=== PATIENT | male | born 1950 | race Caucasian/White ===

== ENCOUNTER 2016-10-21 17:58 | Inpatient (IN) | payer OTHER, BC ==
[~2016-10-21] VITALS: Ht 172.7 cm; Wt 99.3 kg
[~2016-10-21 17:58] MED LIST: ALPRAZOLAM2 MG PO; BYSTOLIC10 MG PO; CARBIDOPA/LEVO1 EACH PO; CIPRO500 MG PO; HYDROCODON-ACE1 EAC7 PO; NEXIUM40 MG PO; PERCOCET 5/31 TABLET PO; PRIMIDONE50 MG PO; VENLAFAXINE HC150 M1 PO
[2016-10-21 19:13] LABS: MCH 32.5 PG (29.0-34.0); MCHC 33.8 G/DL (30.0-36.0); MCV 96.2 FL (86-99); MEAN PLAT.VOLUME 10.4 uM^3 (9.0-12.4); PLATELET COUNT 135 K/uL (156-360); RBC DIS.WIDTH-CV 13.8 % (11.8-14.6); RBC DIS.WIDTH-SD 47.4 % (39-53); RED BLOOD COUNT 4.99 M/uL (4.00-5.50); WHITE BLOOD COUNT 8.4 K/uL (4.1-10.2)
[2016-10-21 19:22] LABS: CHLORIDE 100 mEq/L (99-109); POTASSIUM 5.4 mEq/L (3.7-5.4); SODIUM 137 mEq/L (136-147)
[2016-10-21 19:23] LABS: GLUCOSE 104 mg/dL (70-99)
[2016-10-21 19:25] LABS: ANION GAP 13 MEQ/L (2-14)
[2016-10-21 19:27] LABS: GFR ESTIMATE (CALCULATED) > 59 mL/min/
[2016-10-21 19:28] LABS: UREA NITROGEN (BUN) 11 mg/dL (9-23)
[2016-10-21 21:18] LABS: INFLUENZA A VIRAL ANTIGEN POSITIVE; INFLUENZA B VIRAL ANTIGEN NEGATIVE
[2016-10-21] MEDS ORDERED: OMEPRAZOLE20 MG PO (22:22)
[2016-10-21] MEDS ORDERED: METOPROLOL SUC100 MG PO (22:23)
[2016-10-21] MEDS ORDERED: ADVIL200 MG PO (22:23)
[2016-10-22 00:36] VITALS: BP 182/80
[2016-10-22 03:55] VITALS: BP 186/86
[2016-10-22 07:30] VITALS: BP 142/62
[2016-10-22 16:00] VITALS: BP 140/60
[2016-10-22 23:31] VITALS: BP 143/77
[2016-10-23 04:52] LABS: EOSINOPHIL (%) 0 % (0-5); HEMATOCRIT 41.2 % (38.0-50.0); IMMATURE GRANULOCYTE (%) 0.2 % (0.0-0.7); IMMATURE GRANULOCYTE COUNT 0.1 K/uL; LYMPHOCYTE COUNT 0.9 K/uL (1.0-2.8); MCH 32.8 PG (29.0-34.0); MCV 96.5 FL (86-99); MEAN PLAT.VOLUME 10.4 uM^3 (9.0-12.4); MONOCYTE (%) 11.8 % (3-12); MONOCYTE COUNT 0.6 K/uL (0-0.8); NEUTROPHIL (%) 69.3 % (45-76); NEUTROPHIL COUNT 3.2 K/uL (1.8-6.4); PLATELET COUNT 103 K/uL (156-360); RBC DIS.WIDTH-CV 14.1 % (11.8-14.6); RBC DIS.WIDTH-SD 47.7 % (39-53); RED BLOOD COUNT 4.27 M/uL (4.00-5.50); WHITE BLOOD COUNT 4.7 K/uL (4.1-10.2)
[2016-10-23 04:55] LABS: CHLORIDE 104 mEq/L (99-109); SODIUM 139 mEq/L (136-147)
[2016-10-23 04:57] LABS: GLUCOSE 114 mg/dL (70-99)
[2016-10-23 04:59] LABS: ANION GAP 9 MEQ/L (2-14)
[2016-10-23 05:01] LABS: GFR ESTIMATE (CALCULATED) > 59 mL/min/
[2016-10-23 05:02] LABS: UREA NITROGEN (BUN) 11 mg/dL (9-23)
[2016-10-23 05:04] LABS: POTASSIUM 3.5 mEq/L (3.7-5.4)
[2016-10-23] MEDS ORDERED: OSELTAMIVIR PHO75 MG PO (07:35)
[2016-10-23] MEDS ORDERED: ADVAIR HFA120 INHALA IH (07:35)
[2016-10-23] MEDS ORDERED: VENTOLIN HFA18 GM IH (07:35)
[2016-10-23] MEDS ORDERED: PREDNISONE20 MG PO (07:35)
[2016-10-23 08:30] VITALS: BP 138/62
== END 2016-10-23 10:17 | disposition home or self-care (01) | DRG 195 ==
LOC: EME 17:58 → 3EAST 22:21 → EDOF 22:21 → 3EAST 23:20
PROVIDERS: Emergency Medicine; Internal Medicine
DX: J09.X2 Influenza due to identified novel influenza A virus with other respiratory manifestations (principal); D69.6 Thrombocytopenia, unspecified; J44.9 Chronic obstructive pulmonary disease, unspecified; G20 Parkinson's disease; R09.02 Hypoxemia; I10 Essential (primary) hypertension; F17.210 Nicotine dependence, cigarettes, uncomplicated; F10.10 Alcohol abuse, uncomplicated
CPT/HCPCS: 71020; 80048; 83735; 85025; 85027; 87502; 94640; 94640 76; 94799; 99202; 99281; 99285; J1650; J2060; J7030; J7512

== ENCOUNTER 2017-02-02 12:11 | Emergency (ER) | payer OTHER, BC ==
[~2017-02-02] VITALS: Ht 172.7 cm; Wt 112.7 kg
[~2017-02-02 12:11] MED LIST changes: +ADVAIR HFA120 INHALA IH; +ADVIL200 MG PO; +METOPROLOL SUC100 MG PO; +OMEPRAZOLE20 MG PO; +OSELTAMIVIR PHO75 MG PO; +PREDNISONE20 MG PO; +VENTOLIN HFA18 GM IH
[2017-02-02 16:20] VITALS: BP 138/93
== END 2017-02-02 16:21 | disposition home or self-care (01) ==
LOC: EME 12:11
PROC: 0HQ1XZZ Repair Face Skin, External Approach (ICD-10-PCS; principal; 2017-02-02)
DX: S01.81XA Laceration without foreign body of other part of head, initial encounter (principal); W19.XXXA Unspecified fall, initial encounter; Z91.81 History of falling; F10.10 Alcohol abuse, uncomplicated; G20 Parkinson's disease; J44.9 Chronic obstructive pulmonary disease, unspecified; I10 Essential (primary) hypertension; F17.200 Nicotine dependence, unspecified, uncomplicated
CPT/HCPCS: 99281; 99284

== ENCOUNTER 2017-08-14 11:33 | Inpatient (IN) | payer OTHER, BC ==
[~2017-08-14] VITALS: Ht 172.7 cm; Wt 116.8 kg
[~2017-08-14 11:33] MED LIST changes: -ALPRAZOLAM2 MG PO; +XANAX1 MG PO
[2017-08-14 12:41] LABS: MCH 25.1 PG (29.0-34.0); MCHC 31.8 G/DL (30.0-36.0); MCV 79.1 FL (86-99); MEAN PLAT.VOLUME 9.3 uM^3 (9.0-12.4); PLATELET COUNT 222 K/uL (156-360); RED BLOOD COUNT 5.06 M/uL (4.00-5.50); WHITE BLOOD COUNT 5.8 K/uL (4.1-10.2)
[2017-08-14 13:07] LABS: ANION GAP 12 MEQ/L (2-14); CHLORIDE 92 MEQ/L (99-109); POTASSIUM 5.9 MEQ/L (3.7-5.4); SAMPLE HEMOLYSIS CHECK 0; SAMPLE ICTERIC CHECK 0; SAMPLE LIPEMIA CHECK 0; SODIUM 128 MEQ/L (136-147)
[2017-08-14 13:13] LABS: GFR ESTIMATE (CALCULATED) 29 mL/min/ (58.99-99999); GLUCOSE 97 mg/dL (70-99); UREA NITROGEN (BUN) 46 mg/dL (9-23)
[2017-08-14 13:47] LABS: ADD MIUA? YES; BILIRUBIN NEGATIVE; BLOOD SMALL; COLOR YELLOW ((YELLOW)); GLUCOSE (STRIP) 50; KETONES 5; LEUKOCYTES MODERATE; NITRITE NEGATIVE; PROTEIN (STRIP) 100; SPECIFIC GRAVITY 1.012 (1.000-1.030); UROBILINOGEN 0.2 MG/DL (0.2-1.0)
[2017-08-14 13:50] LABS: DIRECT BILIRUBIN 0.1 mg/dL (0.0-0.3); TOTAL BILIRUBIN 0.6 MG/DL (0.0-1.0)
[2017-08-14 13:55] LABS: ALKALINE PHOSPHATASE 91 IU/L (3-129)
[2017-08-14 14:01] LABS: BACTERIA RARE /HPF; EPITHELIAL CELLS RARE /HPF; MUCUS 1+ /LPF; UCUL ADDED? YES
[2017-08-14] MEDS ORDERED: ALPRAZOLAM1 MG PO (14:11)
[2017-08-14] MEDS ORDERED: TAMSULOSIN HCL0.4 MG PO (14:12)
[2017-08-14] MEDS ORDERED: TRIAMTERENE-HC1 EAC1 PO (14:13)
[2017-08-14] MEDS ORDERED: AMLODIPINE BESYL5 MG PO (14:13)
[2017-08-14 15:33] LABS: SERUM ETHYL ALCOHOL < 10 mg/dL
[2017-08-14 16:13] LABS: MAGNESIUM 2.5 mg/dl (1.3-2.7)
[2017-08-14] MEDS ORDERED: BUSPAR7.5 MG PO (18:17)
[2017-08-14] MEDS ORDERED: LISINOPRIL20 MG PO (18:17)
[2017-08-14 18:25] VITALS: BP 175/79
[2017-08-14 22:03] VITALS: BP 153/69
[2017-08-15 00:31] VITALS: BP 129/60
[2017-08-15 02:48] LABS: C DIFF TOXIN POSITIVE (NEGATIVE)
[2017-08-15 03:01] LABS: PROBE CHECK PASS
[2017-08-15 04:01] VITALS: BP 144/68
[2017-08-15 06:41] LABS: ANION GAP 12 MEQ/L (2-14); CHLORIDE 96 MEQ/L (99-109); GFR ESTIMATE (CALCULATED) 46 mL/min/ (58.99-99999); GLUCOSE 102 mg/dL (70-99); POTASSIUM 4.9 MEQ/L (3.7-5.4); SAMPLE HEMOLYSIS CHECK 0; SAMPLE ICTERIC CHECK 0; SAMPLE LIPEMIA CHECK 0; SODIUM 133 MEQ/L (136-147); UREA NITROGEN (BUN) 36 mg/dL (9-23)
[2017-08-15 08:51] VITALS: BP 169/73
[2017-08-15 12:04] VITALS: BP 145/68
[2017-08-15 16:48] VITALS: BP 155/70
[2017-08-16 00:05] VITALS: BP 135/63
[2017-08-16 07:38] VITALS: BP 147/67
[2017-08-16 08:20] LABS: HEMATOCRIT 36.1 % (38.0-50.0); MCH 24.4 PG (29.0-34.0); MCHC 30.7 G/DL (30.0-36.0); MCV 79.5 FL (86-99); MEAN PLAT.VOLUME 9.4 uM^3 (9.0-12.4); PLATELET COUNT 183 K/uL (156-360); RBC DIS.WIDTH-CV 18.5 % (11.8-14.6); RED BLOOD COUNT 4.54 M/uL (4.00-5.50); WHITE BLOOD COUNT 5.5 K/uL (4.1-10.2)
[2017-08-16 08:51] LABS: ANION GAP 12 MEQ/L (2-14); CHLORIDE 101 MEQ/L (99-109); GFR ESTIMATE (CALCULATED) > 59 mL/min/ (58.99-99999); GLUCOSE 105 mg/dL (70-99); POTASSIUM 4.2 MEQ/L (3.7-5.4); SAMPLE HEMOLYSIS CHECK 0; SAMPLE ICTERIC CHECK 0; SAMPLE LIPEMIA CHECK 0; SODIUM 135 MEQ/L (136-147); UREA NITROGEN (BUN) 20 mg/dL (9-23)
[2017-08-16] MEDS ORDERED: FOLIC ACID1 MG PO (08:59)
[2017-08-16] MEDS ORDERED: CHLORDIAZEPOXID25 MG PO (08:59)
[2017-08-16] MEDS ORDERED: THERAGRAN1 TABLET PO (08:59)
[2017-08-16] MEDS ORDERED: NICOTINE PATCH1 EAC2 TD (08:59)
[2017-08-16] MEDS ORDERED: THIAMINE HCL100 MG PO (08:59)
[2017-08-16] MEDS ORDERED: APRESOLINE25 MG PO (08:59)
[2017-08-16] MEDS ORDERED: METRONIDAZOLE500 MG PO (08:59)
== END 2017-08-16 11:31 | disposition home or self-care (01) | DRG 683 ==
LOC: EME 11:33 → EDOF 14:52 → ENRESERV 14:56 → 5EAST 18:14
PROVIDERS: Hospitalist; Internal Medicine
DX: N17.9 Acute kidney failure, unspecified (principal); N39.0 Urinary tract infection, site not specified; A04.72 Enterocolitis due to Clostridium difficile, not specified as recurrent; T50.2X5A Adverse effect of carbonic-anhydrase inhibitors, benzothiadiazides and other diuretics, initial encounter; T46.4X5A Adverse effect of angiotensin-converting-enzyme inhibitors, initial encounter; E87.1 Hypo-osmolality and hyponatremia; E87.5 Hyperkalemia; G20 Parkinson's disease; I10 Essential (primary) hypertension; F41.9 Anxiety disorder, unspecified; K21.9 Gastro-esophageal reflux disease without esophagitis; F10.20 Alcohol dependence, uncomplicated; F17.200 Nicotine dependence, unspecified, uncomplicated; E66.9 Obesity, unspecified; Z68.39 Body mass index [BMI] 39.0-39.9, adult
CPT/HCPCS: 76770; 80048; 80076; 81003; 83605; 83735; 85027; 87040; 87086; 87493; 93005; 99281; 99285; G0480; J0696; J1644; J7030; S0030

== ENCOUNTER 2017-11-04 12:40 | Inpatient (IN) | payer OTHER, BC ==
[~2017-11-04] VITALS: Ht 172.7 cm; Wt 118.4 kg
[~2017-11-04 12:40] MED LIST changes: +ALPRAZOLAM1 MG PO; +AMLODIPINE BESYL5 MG PO; +APRESOLINE25 MG PO; +BUSPAR7.5 MG PO; +CHLORDIAZEPOXID25 MG PO; +FOLIC ACID1 MG PO; +LISINOPRIL20 MG PO; +METRONIDAZOLE500 MG PO; +NICOTINE PATCH1 EAC2 TD; +TAMSULOSIN HCL0.4 MG PO; +THERAGRAN1 TABLET PO; +THIAMINE HCL100 MG PO; +TRIAMTERENE-HC1 EAC1 PO
[2017-11-04 13:32] LABS: HEMATOCRIT 39.7 % (38.0-50.0); HEMOGLOBIN 12.2 G/DL (12.5-16.6); MCH 25.5 PG (29.0-34.0); MCHC 30.7 G/DL (30.0-36.0); MCV 82.9 FL (86-99); NRBC (%) 0.3 /100 WBC (0-0); PLATELET COUNT 233 K/uL (156-360); RBC DIS.WIDTH-CV 16.9 % (11.8-14.6); RBC DIS.WIDTH-SD 50.6 % (39-53); RED BLOOD COUNT 4.79 M/uL (4.00-5.50); WHITE BLOOD COUNT 7.3 K/uL (4.1-10.2)
[2017-11-04 13:42] LABS: CHLORIDE 103 mEq/L (99-109); POTASSIUM 4.2 mEq/L (3.7-5.4); SODIUM 138 mEq/L (136-147)
[2017-11-04 13:43] LABS: GLUCOSE 121 mg/dL (70-99)
[2017-11-04 13:47] LABS: CREATININE 0.9 mg/dL (0.6-1.3); GFR ESTIMATE (CALCULATED) > 59 mL/min/ (58.99-99999)
[2017-11-04 13:48] LABS: UREA NITROGEN (BUN) 12 mg/dL (9-23)
[2017-11-04 13:51] LABS: TROP-I INTERPRETATION NEGATIVE; TROPONIN-I < 0.01 ng/mL (0.0-0.30)
[2017-11-04] MEDS ORDERED: ONE DAILY1 EAC3 PO (17:29)
[2017-11-04] MEDS ORDERED: VITAMIN B-1100 MG PO (17:29)
[2017-11-04] MEDS ORDERED: PROBIOTIC1 EAC1 PO (17:30)
[2017-11-04] MEDS ORDERED: KENALOG,ARISTOC15 G2 TP (17:31)
[2017-11-04] MEDS ORDERED: PROAIR HFA8.5 GM IH (17:31)
[2017-11-04 17:57] LABS: MAGNESIUM 2.3 mg/dL (1.3-2.7)
[2017-11-04 19:44] VITALS: BP 172/74
[2017-11-04 20:25] LABS: TROP-I INTERPRETATION NEGATIVE; TROPONIN-I < 0.01 ng/mL (0.0-0.30)
[2017-11-04 23:47] VITALS: BP 165/74
[2017-11-05 02:19] LABS: CHLORIDE 104 mEq/L (99-109); SODIUM 139 mEq/L (136-147)
[2017-11-05 02:21] LABS: GLUCOSE 169 mg/dL (70-99)
[2017-11-05 02:25] LABS: CREATININE 0.9 mg/dL (0.6-1.3); GFR ESTIMATE (CALCULATED) > 59 mL/min/ (58.99-99999)
[2017-11-05 02:26] LABS: UREA NITROGEN (BUN) 13 mg/dL (9-23)
[2017-11-05 02:29] LABS: TROP-I INTERPRETATION NEGATIVE; TROPONIN-I < 0.01 ng/mL (0.0-0.30)
[2017-11-05 04:33] VITALS: BP 169/80
[2017-11-05 07:40] VITALS: BP 140/73
[2017-11-05 10:58] VITALS: BP 165/71
[2017-11-05 15:34] VITALS: BP 165/77
[2017-11-05 18:50] VITALS: BP 135/68
[2017-11-05 23:35] VITALS: BP 165/74
[2017-11-06 03:31] VITALS: BP 167/84
[2017-11-06 09:12] VITALS: BP 166/74
[2017-11-06] MEDS ORDERED: SPIRIVA RESPIMAT4 GM IH (10:17)
[2017-11-06] MEDS ORDERED: PREDNISONE10 MG PO (10:20)
== END 2017-11-06 11:17 | disposition home or self-care (01) | DRG 192 ==
LOC: EME 12:40 → EDOF 17:25 → 5WEST 17:25 → EDOF 17:25 → ENRESERV 17:30 → 5WEST 19:26 → ENPENDDIS 11-06 10:38 → 5WEST 11-06 11:17
PROVIDERS: Internal Medicine
DX: J44.1 Chronic obstructive pulmonary disease with (acute) exacerbation (principal); J44.0 Chronic obstructive pulmonary disease with (acute) lower respiratory infection; J20.8 Acute bronchitis due to other specified organisms; R06.09 Other forms of dyspnea; G20 Parkinson's disease; K21.9 Gastro-esophageal reflux disease without esophagitis; I10 Essential (primary) hypertension; F17.200 Nicotine dependence, unspecified, uncomplicated; F10.20 Alcohol dependence, uncomplicated; F17.210 Nicotine dependence, cigarettes, uncomplicated; E66.01 Morbid (severe) obesity due to excess calories; Z68.39 Body mass index [BMI] 39.0-39.9, adult
CPT/HCPCS: 71046; 80048; 83735; 83880; 84484; 85027; 93005; 93306; 94640; 94640 76; 94799; 99202; 99281; 99285; G0378; J1650; J1940; J7512

== ENCOUNTER 2017-12-17 11:41 | Emergency (ER) | payer OTHER, BC ==
[~2017-12-17] VITALS: Ht 172.7 cm; Wt 124.0 kg
[~2017-12-17 11:41] MED LIST changes: +KENALOG,ARISTOC15 G2 TP; +ONE DAILY1 EAC3 PO; +PREDNISONE10 MG PO; +PROAIR HFA8.5 GM IH; +PROBIOTIC1 EAC1 PO; +SPIRIVA RESPIMAT4 GM IH; +VITAMIN B-1100 MG PO
[2017-12-17 13:07] LABS: HEMATOCRIT 36.2 % (38.0-50.0); MCH 24.2 PG (29.0-34.0); MCHC 30.4 G/DL (30.0-36.0); MCV 79.6 FL (86-99); PLATELET COUNT 215 K/uL (156-360); RBC DIS.WIDTH-CV 16.5 % (11.8-14.6); RED BLOOD COUNT 4.55 M/uL (4.00-5.50); WHITE BLOOD COUNT 7.7 K/uL (4.1-10.2)
[2017-12-17 13:19] LABS: CHLORIDE 104 mEq/L (99-109); POTASSIUM 4.3 mEq/L (3.7-5.4); SODIUM 139 mEq/L (136-147)
[2017-12-17 13:21] LABS: GLUCOSE 95 mg/dL (70-99)
[2017-12-17 13:25] LABS: CREATININE 0.9 mg/dL (0.6-1.3); GFR ESTIMATE (CALCULATED) > 59 mL/min/ (58.99-99999)
[2017-12-17 13:26] LABS: UREA NITROGEN (BUN) 15 mg/dL (9-23)
[2017-12-17 13:35] LABS: TROP-I INTERPRETATION NEGATIVE; TROPONIN-I < 0.01 ng/mL (0.0-0.30)
[2017-12-17 15:23] LABS: ALBUMIN 4.5 g/dL (3.2-4.8)
[2017-12-17 15:26] LABS: TOTAL PROTEIN 7.8 g/dL (6.4-8.3)
[2017-12-17 15:28] LABS: TOTAL BILIRUBIN 0.6 mg/dL (0.0-1.0)
[2017-12-17 15:29] LABS: ALKALINE PHOSPHATASE 90 IU/L (3-129)
[2017-12-17 15:31] LABS: AST (GOT) 26 IU/L (2-34)
[2017-12-17 15:32] LABS: ALT (GPT) 26 IU/L (3-49); DIRECT BILIRUBIN 0.3 mg/dL (0.0-0.3)
[2017-12-17 15:35] LABS: APPEARANCE CLEAR ((CLEAR)); BILIRUBIN NEGATIVE; BLOOD NEGATIVE; COLOR YELLOW ((YELLOW)); GLUCOSE (STRIP) NEGATIVE; KETONES NEGATIVE; LEUKOCYTES LARGE; NITRITE NEGATIVE; PROTEIN (STRIP) NEGATIVE; SPECIFIC GRAVITY 1.009 (1.000-1.030); UROBILINOGEN 0.2 MG/DL (0.2-1.0)
[2017-12-17 15:42] LABS: BACTERIA NONE SEEN /HPF; EPITHELIAL CELLS RARE /HPF; MUCUS NONE SEEN /LPF; RED BLOOD CELLS 0-5 /HPF (0-5); UCUL ADDED? YES
[2017-12-17] MEDS ORDERED: LASIX40 MG PO (16:27)
[2017-12-17] MEDS ORDERED: LEVAQUIN750 MG PO (16:27)
[2017-12-17 17:00] VITALS: BP 144/64
[2017-12-17] MEDS ORDERED: DUONEB 2.5-0.5 M3 ML AEROSOL (17:16)
[2017-12-17] MEDS ORDERED: NEBULIZER MC (17:16)
== END 2017-12-17 17:38 | disposition home or self-care (01) ==
LOC: EME 11:41
PROVIDERS: Emergency Medicine Emergency Medical Services
DX: J44.1 Chronic obstructive pulmonary disease with (acute) exacerbation (principal); E87.70 Fluid overload, unspecified; I87.2 Venous insufficiency (chronic) (peripheral); R60.0 Localized edema; N39.0 Urinary tract infection, site not specified; F17.200 Nicotine dependence, unspecified, uncomplicated; F32.9 Major depressive disorder, single episode, unspecified; I10 Essential (primary) hypertension; K21.9 Gastro-esophageal reflux disease without esophagitis; G20 Parkinson's disease; F41.9 Anxiety disorder, unspecified
CPT/HCPCS: 71046; 80048; 80076; 81003; 83880; 84484; 85027; 87086; 93005; 94640; 99281; 99285

== ENCOUNTER 2018-02-17 09:27 | Inpatient (IN) | payer OTHER, BC ==
[~2018-02-17] VITALS: Ht 172.7 cm; Wt 127.0 kg
[~2018-02-17 09:27] MED LIST changes: +DUONEB 2.5-0.5 M3 ML AEROSOL; +LASIX40 MG PO; +LEVAQUIN750 MG PO; +NEBULIZER MC; -OMEPRAZOLE20 MG PO; +OMEPRAZOLE40 M1 PO
[2018-02-17 10:22] LABS: INTER. NORMALIZED RATIO 1.1
[2018-02-17 10:26] LABS: CHLORIDE 91 mEq/L (99-109); POTASSIUM 3.4 mEq/L (3.7-5.4); SODIUM 133 mEq/L (136-147)
[2018-02-17 10:27] LABS: GLUCOSE 111 mg/dL (70-99)
[2018-02-17 10:29] LABS: BASOPHIL (%) 0.5 % (0-1); EOSINOPHIL (%) 0.5 % (0-5); HEMATOCRIT 32.1 % (38.0-50.0); HEMOGLOBIN 9.7 G/DL (12.5-16.6); IMMATURE GRANULOCYTE (%) 0.4 % (0.0-0.7); LYMPHOCYTE (%) 13.1 % (15-42); LYMPHOCYTE COUNT 1.1 K/uL (1.0-2.8); MCH 22.5 PG (29.0-34.0); MCHC 30.2 G/DL (30.0-36.0); MCV 74.3 FL (86-99); MONOCYTE COUNT 1.2 K/uL (0-0.8); NEUTROPHIL (%) 70.5 % (45-76); NEUTROPHIL COUNT 5.8 K/uL (1.8-6.4); NRBC (%) 0.2 /100 WBC (0-0); PLATELET COUNT 203 K/uL (156-360); RBC DIS.WIDTH-SD 47.8 % (39-53); RED BLOOD COUNT 4.32 M/uL (4.00-5.50); WHITE BLOOD COUNT 8.3 K/uL (4.1-10.2)
[2018-02-17 10:31] LABS: CREATININE 0.9 mg/dL (0.6-1.3); GFR ESTIMATE (CALCULATED) > 59 mL/min/ (58.99-99999)
[2018-02-17 10:32] LABS: UREA NITROGEN (BUN) 14 mg/dL (9-23)
[2018-02-17 10:38] LABS: TROP-I INTERPRETATION NEGATIVE; TROPONIN-I < 0.01 ng/mL (0.0-0.30)
[2018-02-17] MEDS ORDERED: CLONIDINE1 EACH TD (14:28)
[2018-02-17] MEDS ORDERED: FINASTERIDE5 MG PO (14:31)
[2018-02-17] MEDS ORDERED: VERAPAMIL HCL240 MG PO (14:31)
[2018-02-17] MEDS ORDERED: BEVESPI AEROS10.7 GM IH (14:32)
[2018-02-17] MEDS ORDERED: VENTOLIN HFA18 GM IH (14:32)
[2018-02-17 15:50] VITALS: BP 156/66
[2018-02-17 19:01] VITALS: BP 127/69
[2018-02-17 23:11] VITALS: BP 175/79
[2018-02-18 03:05] VITALS: BP 174/78
[2018-02-18 05:59] LABS: HEMOGLOBIN 9.1 G/DL (12.5-16.6); MCH 21.4 PG (29.0-34.0); MCHC 28.4 G/DL (30.0-36.0); MCV 75.1 FL (86-99); PLATELET COUNT 172 K/uL (156-360); RBC DIS.WIDTH-CV 19.1 % (11.8-14.6); RBC DIS.WIDTH-SD 49.3 % (39-53); RED BLOOD COUNT 4.26 M/uL (4.00-5.50); WHITE BLOOD COUNT 5.6 K/uL (4.1-10.2)
[2018-02-18 06:29] LABS: CHLORIDE 92 MEQ/L (99-109); CREATININE 0.9 MG/DL (0.6-1.3); GFR ESTIMATE (CALCULATED) > 59 mL/min/ (58.99-99999); POTASSIUM 3.7 MEQ/L (3.7-5.4); SODIUM 133 MEQ/L (136-147); UREA NITROGEN (BUN) 13 mg/dL (9-23)
[2018-02-18 06:35] LABS: GLUCOSE 167 mg/dL (70-99)
[2018-02-18 07:36] VITALS: BP 136/80
[2018-02-18 08:35] LABS: TROP-I INTERPRETATION NEGATIVE; TROPONIN-I < 0.01 ng/mL (0.0-0.30)
[2018-02-18 11:56] VITALS: BP 136/64
[2018-02-18 15:20] VITALS: BP 132/59
[2018-02-18 19:48] VITALS: BP 150/70
[2018-02-18 23:25] VITALS: BP 151/83
[2018-02-19 03:56] VITALS: BP 162/77
[2018-02-19 06:36] LABS: BASOPHIL (%) 0 % (0-1); EOSINOPHIL (%) 0 % (0-5); HEMATOCRIT 31.7 % (38.0-50.0); HEMOGLOBIN 8.9 G/DL (12.5-16.6); IMMATURE GRANULOCYTE (%) 0.4 % (0.0-0.7); LYMPHOCYTE (%) 11.2 % (15-42); LYMPHOCYTE COUNT 0.8 K/uL (1.0-2.8); MCH 21.8 PG (29.0-34.0); MCHC 28.1 G/DL (30.0-36.0); MCV 77.7 FL (86-99); MONOCYTE (%) 12.3 % (3-12); MONOCYTE COUNT 0.8 K/uL (0-0.8); NEUTROPHIL (%) 76.1 % (45-76); NEUTROPHIL COUNT 5.2 K/uL (1.8-6.4); PLATELET COUNT 185 K/uL (156-360); RBC DIS.WIDTH-CV 19.4 % (11.8-14.6); RBC DIS.WIDTH-SD 52.9 % (39-53); RED BLOOD COUNT 4.08 M/uL (4.00-5.50); WHITE BLOOD COUNT 6.8 K/uL (4.1-10.2)
[2018-02-19 07:00] VITALS: BP 169/72
[2018-02-19 07:04] LABS: CHLORIDE 97 MEQ/L (99-109); GFR ESTIMATE (CALCULATED) > 59 mL/min/ (58.99-99999); GLUCOSE 160 mg/dL (70-99); POTASSIUM 4.2 MEQ/L (3.7-5.4); SODIUM 137 MEQ/L (136-147); UREA NITROGEN (BUN) 17 mg/dL (9-23)
[2018-02-19 11:11] VITALS: BP 146/62
[2018-02-19 15:24] VITALS: BP 153/72
[2018-02-19 20:05] VITALS: BP 166/74
[2018-02-19 23:20] VITALS: BP 152/72
[2018-02-20 04:11] VITALS: BP 153/70
[2018-02-20 06:55] LABS: HEMATOCRIT 30.9 % (38.0-50.0); HEMOGLOBIN 8.8 G/DL (12.5-16.6); MCH 22.3 PG (29.0-34.0); MCHC 28.5 G/DL (30.0-36.0); MCV 78.2 FL (86-99); PLATELET COUNT 162 K/uL (156-360); RBC DIS.WIDTH-CV 19.3 % (11.8-14.6); RBC DIS.WIDTH-SD 53.6 % (39-53); RED BLOOD COUNT 3.95 M/uL (4.00-5.50)
[2018-02-20 07:00] VITALS: BP 138/75
[2018-02-20 07:22] LABS: CHLORIDE 96 MEQ/L (99-109); CREATININE 0.9 MG/DL (0.6-1.3); GFR ESTIMATE (CALCULATED) > 59 mL/min/ (58.99-99999); GLUCOSE 142 mg/dL (70-99); IRON 16 MCG/DL (35-150); POTASSIUM 4.5 MEQ/L (3.7-5.4); SODIUM 136 MEQ/L (136-147); TRANSFERRIN (TIBC) 331.8 mg/dL (215-380); TRANSFERRIN SATUR. 5 % (20-55); UREA NITROGEN (BUN) 20 mg/dL (9-23)
[2018-02-20 08:24] LABS: FERRITIN 14 NG/ML (22-322)
[2018-02-20 08:30] LABS: FOLIC ACID (FOLATE) 22.2 NG/ML (5.0-22.0)
[2018-02-20 12:09] VITALS: BP 172/83
[2018-02-20] MEDS ORDERED: KEFLEX500 MG PO (13:28)
[2018-02-20] MEDS ORDERED: NICOTINE PATCH1 EAC2 TD (13:29)
[2018-02-20] MEDS ORDERED: FERROUS SULFAT325 MG PO (13:29)
[2018-02-20] MEDS ORDERED: FUROSEMIDE40 MG PO (13:31)
[2018-02-20] MEDS ORDERED: AZITHROMYCIN250 MG PO (13:37)
[2018-02-20] MEDS ORDERED: LISINOPRIL5 MG PO (13:38)
[2018-02-20] MEDS ORDERED: PREDNISONE10 MG PO (13:40)
== END 2018-02-20 15:14 | disposition home health service (06) | DRG 191 ==
LOC: EME 09:27 → EDOF 11:54 → 5EAST 11:54 → ENRESERV 11:56 → 5EAST 15:41
PROVIDERS: Emergency Medicine; Internal Medicine; Physician Assistant; Student in an Organized Health Care Education/Training Program
DX: J44.1 Chronic obstructive pulmonary disease with (acute) exacerbation (principal); L03.116 Cellulitis of left lower limb; L03.115 Cellulitis of right lower limb; G20 Parkinson's disease; Z68.41 Body mass index [BMI] 40.0-44.9, adult; R09.02 Hypoxemia; K21.9 Gastro-esophageal reflux disease without esophagitis; F17.210 Nicotine dependence, cigarettes, uncomplicated; I87.8 Other specified disorders of veins; Z99.81 Dependence on supplemental oxygen; F32.9 Major depressive disorder, single episode, unspecified; I35.0 Nonrheumatic aortic (valve) stenosis; F10.20 Alcohol dependence, uncomplicated; E87.1 Hypo-osmolality and hyponatremia; D50.9 Iron deficiency anemia, unspecified; F41.1 Generalized anxiety disorder; I10 Essential (primary) hypertension; E87.70 Fluid overload, unspecified
CPT/HCPCS: 71045; 80048; 82607; 82728; 82746; 83540; 83735; 83880; 84466; 84484; 85025; 85027; 85610; 85730; 87040; 93005; 94640; 94640 76; 94760; 94799; 99202; 99281; 99285; J0690; J1650; J1940; J2060; J2920; J7512

== ENCOUNTER → 2018-03-19 | Outpatient (CLI) | payer OTHER, BC ==
[~2018-03-19] MED LIST changes: +AZITHROMYCIN250 MG PO; +BEVESPI AEROS10.7 GM IH; +CLONIDINE1 EACH TD; +FERROUS SULFAT325 MG PO; +FINASTERIDE5 MG PO; +FUROSEMIDE40 MG PO; +KEFLEX500 MG PO; +LISINOPRIL5 MG PO; +VERAPAMIL HCL240 MG PO
== END | disposition home or self-care (01) ==
LOC: RAD 10:51
DX: R60.0 Localized edema (principal)
CPT/HCPCS: 93970

== ENCOUNTER 2018-04-07 19:03 | Inpatient (IN) | payer OTHER, BC ==
[~2018-04-07] VITALS: Ht 172.7 cm; Wt 122.5 kg
[2018-04-07 19:43] LABS: HEMATOCRIT 32.5 % (38.0-50.0); HEMOGLOBIN 10.8 G/DL (12.5-16.6); MCH 26.1 PG (29.0-34.0); MCHC 33.2 G/DL (30.0-36.0); MCV 78.5 FL (86-99); PLATELET COUNT 215 K/uL (156-360); RED BLOOD COUNT 4.14 M/uL (4.00-5.50)
[2018-04-07 19:51] LABS: PTT 29.1 SEC (25-37)
[2018-04-07 20:00] LABS: CHLORIDE 75 mEq/L (99-109); POTASSIUM 3.2 mEq/L (3.7-5.4); SODIUM 122 mEq/L (136-147)
[2018-04-07 20:02] LABS: GLUCOSE 100 mg/dL (70-99)
[2018-04-07 20:04] LABS: TROP-I INTERPRETATION NEGATIVE; TROPONIN-I < 0.01 ng/mL (0.0-0.30)
[2018-04-07 20:06] LABS: CREATININE 2.6 mg/dL (0.6-1.3); GFR ESTIMATE (CALCULATED) 26 mL/min/ (58.99-99999); UREA NITROGEN (BUN) 26 mg/dL (9-23)
[2018-04-08 00:45] VITALS: BP 129/68
[2018-04-08 01:34] LABS: CHLORIDE 79 mEq/L (99-109); POTASSIUM 3.1 mEq/L (3.7-5.4); SODIUM 122 mEq/L (136-147)
[2018-04-08 01:36] LABS: GLUCOSE 106 mg/dL (70-99)
[2018-04-08 01:40] LABS: GFR ESTIMATE (CALCULATED) 34 mL/min/ (58.99-99999); UREA NITROGEN (BUN) 25 mg/dL (9-23)
[2018-04-08 01:54] LABS: CREATININE 2.1 mg/dL (0.6-1.3)
[2018-04-08 04:27] VITALS: BP 124/66
[2018-04-08 06:40] LABS: HEMATOCRIT 30.9 % (38.0-50.0); HEMOGLOBIN 10.1 G/DL (12.5-16.6); MCH 25.8 PG (29.0-34.0); MCHC 32.7 G/DL (30.0-36.0); PLATELET COUNT 213 K/uL (156-360); RBC DIS.WIDTH-SD 63.6 % (39-53); RED BLOOD COUNT 3.91 M/uL (4.00-5.50); WHITE BLOOD COUNT 6.9 K/uL (4.1-10.2)
[2018-04-08 07:01] LABS: CHLORIDE 81 MEQ/L (99-109); CREATININE 1.8 MG/DL (0.6-1.3); GFR ESTIMATE (CALCULATED) 40 mL/min/ (58.99-99999); GLUCOSE 115 mg/dL (70-99); POTASSIUM 3.1 MEQ/L (3.7-5.4); SODIUM 124 MEQ/L (136-147); UREA NITROGEN (BUN) 24 mg/dL (9-23)
[2018-04-08 07:41] VITALS: BP 126/61
[2018-04-08 09:04] LABS: BICARBONATE 34.3 mEq/L (22-26); CARBOXY HGB 2.5 % (0-5); COMMENTS - BLOOD GASES A+C+; DEVICE NC; METHEMOGLOBIN 1.3 % (0-1.5); O2 FLOW 2 L/MIN; O2 SATURATION (CALCULATED) 93.1 % (95-99); PCO2 44 mm Hg (35-45); PO2 69 mm Hg (80-100); SITE RR; TOTAL RESP RATE 20 resp/min
[2018-04-08 09:06] LABS: ALBUMIN 3.6 G/DL (3.2-4.8); ALKALINE PHOSPHATASE 62 IU/L (3-129); ALT (GPT) 17 IU/L (3-49); AST (GOT) 21 IU/L (2-34); DIRECT BILIRUBIN 0.2 mg/dL (0.0-0.3); MAGNESIUM 2.2 mg/dl (1.3-2.7); PHOSPHORUS 3.8 mg/dL (2.5-4.9); TOTAL BILIRUBIN 0.7 MG/DL (0.0-1.0)
[2018-04-08] MEDS ORDERED: OMEPRAZOLE40 M1 PO (11:16)
[2018-04-08] MEDS ORDERED: FLOMAX0.4 MG PO (11:17)
[2018-04-08] MEDS ORDERED: CARBIDOPA/LEVO1 EACH PO (11:17)
[2018-04-08] MEDS ORDERED: VENLAFAXINE HC150 M1 PO (11:18)
[2018-04-08] MEDS ORDERED: BEVESPI AEROS10.7 GM IH (11:19)
[2018-04-08] MEDS ORDERED: LISINOPRIL5 MG PO (11:19)
[2018-04-08] MEDS ORDERED: BUSPAR7.5 MG PO (11:22)
[2018-04-08] MEDS ORDERED: ALPRAZOLAM1 MG PO ×2 (11:24→11:25)
[2018-04-08] MEDS ORDERED: METOLAZONE2.5 MG PO (11:24)
[2018-04-08] MEDS ORDERED: CLONIDINE1 EACH TD (11:25)
[2018-04-08] MEDS ORDERED: FUROSEMIDE40 MG PO (11:25)
[2018-04-08] MEDS ORDERED: PRIMIDONE50 MG PO (11:26)
[2018-04-08] MEDS ORDERED: VERAPAMIL HCL240 MG PO (11:26)
[2018-04-08] MEDS ORDERED: VENTOLIN HFA18 GM IH (11:26)
[2018-04-08] MEDS ORDERED: FINASTERIDE5 MG PO (11:27)
[2018-04-08] MEDS ORDERED: PROVENTIL,2.5 MG/3 M IH (11:27)
[2018-04-08] MEDS ORDERED: MULTIVITAMIN1 EAC2 PO (11:28)
[2018-04-08] MEDS ORDERED: VITAMIN B-1100 MG PO (11:28)
[2018-04-08] MEDS ORDERED: FEOSOL325 MG PO (11:29)
[2018-04-08] MEDS ORDERED: PROBIOTIC1 EAC1 PO (11:29)
[2018-04-08] MEDS ORDERED: ADVIL,NUPRIN,M200 MG PO (11:30)
[2018-04-08 11:46] VITALS: BP 150/69
[2018-04-08 13:01] LABS: CHLORIDE 84 MEQ/L (99-109); CREATININE 1.5 MG/DL (0.6-1.3); GFR ESTIMATE (CALCULATED) 49 mL/min/ (58.99-99999); GLUCOSE 141 mg/dL (70-99); POTASSIUM 3.6 MEQ/L (3.7-5.4); SODIUM 126 MEQ/L (136-147); UREA NITROGEN (BUN) 22 mg/dL (9-23)
[2018-04-08 14:46] LABS: APPEARANCE CLEAR ((CLEAR)); BILIRUBIN NEGATIVE; BLOOD NEGATIVE; COLOR YELLOW ((YELLOW)); GLUCOSE (STRIP) 150; KETONES NEGATIVE; LEUKOCYTES LARGE; NITRITE NEGATIVE; PROTEIN (STRIP) NEGATIVE; SPECIFIC GRAVITY 1.006 (1.000-1.030); UROBILINOGEN 0.2 MG/DL (0.2-1.0)
[2018-04-08 14:49] LABS: BACTERIA RARE /HPF; EPITHELIAL CELLS RARE /HPF; MUCUS NONE SEEN /LPF; RED BLOOD CELLS 0-5 /HPF (0-5)
[2018-04-08 16:07] VITALS: BP 145/72
[2018-04-08 20:00] VITALS: BP 129/63
[2018-04-09 00:22] VITALS: BP 133/66
[2018-04-09 03:33] VITALS: BP 122/57
[2018-04-09 06:47] LABS: HEMATOCRIT 34.5 % (38.0-50.0); HEMOGLOBIN 10.8 G/DL (12.5-16.6); MCH 25.8 PG (29.0-34.0); MCHC 31.3 G/DL (30.0-36.0); MCV 82.3 FL (86-99); PLATELET COUNT 238 K/uL (156-360); RBC DIS.WIDTH-CV 23.8 % (11.8-14.6); RBC DIS.WIDTH-SD 67.9 % (39-53); RED BLOOD COUNT 4.19 M/uL (4.00-5.50); WHITE BLOOD COUNT 7.4 K/uL (4.1-10.2)
[2018-04-09 07:10] LABS: BASOPHIL (%) 0 % (0-1); EOSINOPHIL (%) 0 % (0-5); IMMATURE GRANULOCYTE (%) 0.7 % (0.0-0.7); LYMPHOCYTE (%) 8.1 % (15-42); LYMPHOCYTE COUNT 0.6 K/uL (1.0-2.8); MONOCYTE (%) 8.9 % (3-12); MONOCYTE COUNT 0.7 K/uL (0-0.8); NEUTROPHIL (%) 82.3 % (45-76); NEUTROPHIL COUNT 6.1 K/uL (1.8-6.4)
[2018-04-09 07:14] VITALS: BP 124/65
[2018-04-09 07:20] LABS: ALBUMIN 4.4 G/DL (3.2-4.8); ALKALINE PHOSPHATASE 71 IU/L (3-129); ALT (GPT) 15 IU/L (3-49); AST (GOT) 15 IU/L (2-34); CHLORIDE 89 MEQ/L (99-109); CREATININE 1.3 MG/DL (0.6-1.3); GFR ESTIMATE (CALCULATED) 58 mL/min/ (58.99-99999); GLUCOSE 179 mg/dL (70-99); MAGNESIUM 2.4 mg/dl (1.3-2.7); PHOSPHORUS 3.9 mg/dL (2.5-4.9); SODIUM 131 MEQ/L (136-147); TOTAL PROTEIN 6.9 G/DL (6.4-8.3); UREA NITROGEN (BUN) 22 mg/dL (9-23); URIC ACID 5.3 mg/dL (3.1-9.2)
[2018-04-09 07:24] LABS: TOTAL BILIRUBIN 0.5 MG/DL (0.0-1.0)
[2018-04-09 10:53] LABS: THYROTROPIN (TSH) 1.3 MIU/L (0.4-5.5)
[2018-04-09 15:13] VITALS: BP 138/64
[2018-04-09 23:59] VITALS: BP 172/71
[2018-04-10 05:17] LABS: BASOPHIL (%) 0.2 % (0-1); EOSINOPHIL (%) 0.1 % (0-5); HEMATOCRIT 35.7 % (38.0-50.0); IMMATURE GRANULOCYTE (%) 0.6 % (0.0-0.7); LYMPHOCYTE (%) 17.9 % (15-42); LYMPHOCYTE COUNT 1.5 K/uL (1.0-2.8); MCH 25.9 PG (29.0-34.0); MCHC 30.8 G/DL (30.0-36.0); MCV 84.2 FL (86-99); MONOCYTE (%) 12.2 % (3-12); NEUTROPHIL COUNT 5.7 K/uL (1.8-6.4); PLATELET COUNT 202 K/uL (156-360); RBC DIS.WIDTH-CV 24.2 % (11.8-14.6); RBC DIS.WIDTH-SD 71.4 % (39-53); RED BLOOD COUNT 4.24 M/uL (4.00-5.50); WHITE BLOOD COUNT 8.3 K/uL (4.1-10.2)
[2018-04-10 05:49] LABS: CHLORIDE 94 MEQ/L (99-109); CREATININE 1.3 MG/DL (0.6-1.3); GFR ESTIMATE (CALCULATED) 58 mL/min/ (58.99-99999); POTASSIUM 3.9 MEQ/L (3.7-5.4); SODIUM 134 MEQ/L (136-147); UREA NITROGEN (BUN) 27 mg/dL (9-23)
[2018-04-10 05:50] LABS: GLUCOSE 113 mg/dL (70-99)
[2018-04-10 07:10] VITALS: BP 138/89
[2018-04-10] MEDS ORDERED: BUSPAR10 MG PO (08:02)
[2018-04-10] MEDS ORDERED: CHLORDIAZEPOXID25 MG PO (08:04)
[2018-04-10] MEDS ORDERED: FOLIC ACID1 MG PO (08:04)
[2018-04-10] MEDS ORDERED: MEDROL DOSEPAK4 MG PO (11:22)
[2018-04-10 12:02] LABS: HEPATITIS C ANTIBODY Nonreactive
== END 2018-04-10 12:04 | disposition home health service (06) | DRG 682 ==
LOC: EME 19:03 → 5SOUTH 22:57 → EDOF 22:57 → 5SOUTH 04-08 00:30
PROVIDERS: Hospitalist; Internal Medicine; Internal Medicine Nephrology; Nurse Practitioner Family
DX: N17.9 Acute kidney failure, unspecified (principal); T50.2X5A Adverse effect of carbonic-anhydrase inhibitors, benzothiadiazides and other diuretics, initial encounter; J44.1 Chronic obstructive pulmonary disease with (acute) exacerbation; E87.1 Hypo-osmolality and hyponatremia; E86.0 Dehydration; E87.3 Alkalosis; J96.01 Acute respiratory failure with hypoxia; E87.6 Hypokalemia; F10.239 Alcohol dependence with withdrawal, unspecified; I10 Essential (primary) hypertension; K21.9 Gastro-esophageal reflux disease without esophagitis; N28.89 Other specified disorders of kidney and ureter; N40.0 Benign prostatic hyperplasia without lower urinary tract symptoms; D50.9 Iron deficiency anemia, unspecified; G20 Parkinson's disease; G47.33 Obstructive sleep apnea (adult) (pediatric); F41.1 Generalized anxiety disorder; Z96.619 Presence of unspecified artificial shoulder joint; F17.210 Nicotine dependence, cigarettes, uncomplicated; E66.01 Morbid (severe) obesity due to excess calories; Z68.41 Body mass index [BMI] 40.0-44.9, adult; Z99.81 Dependence on supplemental oxygen
CPT/HCPCS: 36600; 71046; 71250; 74176; 76770; 78582; 80048; 80048 91; 80053; 80076; 81003; 82533 91; 83735; 83880; 83935; 84100; 84300; 84443; 84484; 84550; 85025; 85027; 85610; 85730; 86803; 93005; 94640; 94760; 94799; 99281; 99285; A9540; A9567; J0456; J1644; J2060; J2920; J7030; J7512